=== PATIENT | male | born 1955 | race Caucasian/White ===

== ENCOUNTER 2018-01-09 18:01 | Inpatient (IN) | payer MEDICAID ==
[~2018-01-09] VITALS: Ht 182.9 cm; Wt 88.7 kg
[2018-01-09] MEDS ORDERED: HYDR25TA6 PO (18:19)
[2018-01-09] MEDS ORDERED: LISI5TAB7 PO (18:19)
[2018-01-09] MEDS ORDERED: ONDANSETRON ODT 4 MG PO ONE (18:30)
[2018-01-09] MEDS ORDERED: ONDANSETRON ODT 4 MG ONE (18:36)
[2018-01-09 18:49] LABS: BASOPHILS # (AUTO) 0.01 x10^3/uL (0-0.1); BASOPHILS % (AUTO) 0 % (0-1); EOSINOPHILS # (AUTO) 0.06 x10^3/uL (0-0.4); EOSINOPHILS % (AUTO) 1 % (1-7); LYMPHOCYTES % (AUTO) 6 % (22-44); MD NO; MEAN CORPUSCULAR HEMOGLOBIN 30.2 pg (27.5-34.5); MEAN CORPUSCULAR HGB CONC 34.2 g/dL (33.2-36.2); MEAN CORPUSCULAR VOLUME 88.2 fL (81-97); MEAN PLATELET VOLUME 6.9 fL (7.4-10.4); MONOCYTES # (AUTO) 0.61 x10^3/uL (0.2-0.8); MONOCYTES % (AUTO) 8 % (2-9); NEUTROPHILS # (AUTO) 6.88 x10^3/uL (1.8-6.8); NEUTROPHILS % (AUTO) 85 % (42-75); PLATELET COUNT 278 x10^3/uL (130-400); RED BLOOD COUNT 4.62 x10^6/uL (4.38-5.82); RED CELL DISTRIBUTION WIDTH 13.6 % (9.4-14.8)
[2018-01-09 18:55] LABS: ALANINE AMINOTRANSFERASE 157 U/L (12-78); ALBUMIN 3.7 g/dL (3.4-5.0); ANION GAP 12 mmol/L (5-15); CALCIUM 8.1 mg/dL (8.5-10.1); CHLORIDE 76 mmol/L (98-107); CREATININE 0.92 mg/dL (0.7-1.3)
[2018-01-09 18:57] LABS: ALKALINE PHOSPHATASE 92 U/L (45-117); BILIRUBIN,TOTAL 1.7 mg/dL (0.2-1.0)
[2018-01-09] MEDS ORDERED: PLEASE ENTER ALLERGIES MC SCH (19:30)
[2018-01-09] MEDS ORDERED: SODIUM CHLORIDE 0.9% 1,000ML IVBOLUS ONE (19:30)
[2018-01-09] MEDS ORDERED: SODIUM CHLORIDE 0.9% 1,000 ML IV SCH (19:53)
[2018-01-09] MEDS ORDERED: ONDANSETRON 2MG/ML, 2ML IVPush PRN (20:00)
[2018-01-09] MEDS ORDERED: METOCLOPRAMIDE 5 MG/ML, 2ML IVPush PRN (20:00)
[2018-01-09] MEDS ORDERED: LORazepam 2 MG/ML, 1ML IVPush PRN (20:00)
[2018-01-09] MEDS ORDERED: hydrALAzine 20 MG/ML, 1ML IVPush PRN (20:00)
[2018-01-09 20:07] LABS: MICROSCOPIC AUTO
[2018-01-09 20:10] LABS: CULTURE INDICATED? NO
[2018-01-09] MEDS ORDERED: NICOTINE 21 MG/24 HR PATCH.TD24 ONE (20:21)
[2018-01-09] MEDS ORDERED: ENOXAPARIN 40 MG/0.4 ML ONE (20:21)
[2018-01-09] MEDS: NICOTINE 21 MG/24 HR PATCH.TD24 TD SCH (20:38)
[2018-01-09] MEDS: ENOXAPARIN 40 MG/0.4 ML SQ SCH (20:39)
[2018-01-09 21:23] LABS: ANION GAP 10 mmol/L (5-15); CALCIUM 7.7 mg/dL (8.5-10.1); CHLORIDE 81 mmol/L (98-107); CREATININE 0.87 mg/dL (0.7-1.3)
[2018-01-09 22:40] VITALS: BP 131/92
[2018-01-10 01:24] LABS: ANION GAP 11 mmol/L (5-15); CALCIUM 8.1 mg/dL (8.5-10.1); CHLORIDE 86 mmol/L (98-107); CREATININE 0.81 mg/dL (0.7-1.3)
[2018-01-10] MEDS ORDERED: SODIUM CHLORIDE 0.45% 1,000 ML IV SCH (01:30)
[2018-01-10] MEDS: ALBUTEROL SULFATE 2.5 MG/3 ML NPPB PRN (01:43)
[2018-01-10 04:10] VITALS: BP 124/78
[2018-01-10 04:28] LABS: BASOPHILS # (AUTO) 0.05 x10^3/uL (0-0.1); BASOPHILS % (AUTO) 1 % (0-1); EOSINOPHILS # (AUTO) 0.06 x10^3/uL (0-0.4); EOSINOPHILS % (AUTO) 1 % (1-7); LYMPHOCYTES # (AUTO) 0.79 x10^3/uL (1-3.4); LYMPHOCYTES % (AUTO) 10 % (22-44); MD NO; MEAN CORPUSCULAR HEMOGLOBIN 29.5 pg (27.5-34.5); MEAN CORPUSCULAR HGB CONC 33.4 g/dL (33.2-36.2); MEAN CORPUSCULAR VOLUME 88.4 fL (81-97); MEAN PLATELET VOLUME 6.6 fL (7.4-10.4); MONOCYTES # (AUTO) 0.66 x10^3/uL (0.2-0.8); MONOCYTES % (AUTO) 8 % (2-9); NEUTROPHILS # (AUTO) 6.35 x10^3/uL (1.8-6.8); NEUTROPHILS % (AUTO) 80 % (42-75); PLATELET COUNT 265 x10^3/uL (130-400); RED BLOOD COUNT 4.58 x10^6/uL (4.38-5.82)
[2018-01-10 04:41] LABS: ALBUMIN 3.4 g/dL (3.4-5.0); ANION GAP 11 mmol/L (5-15); CHLORIDE 89 mmol/L (98-107)
[2018-01-10 04:46] LABS: ALANINE AMINOTRANSFERASE 134 U/L (12-78); ALKALINE PHOSPHATASE 84 U/L (45-117); BILIRUBIN,TOTAL 1.2 mg/dL (0.2-1.0); CREATININE 0.77 mg/dL (0.7-1.3); TOTAL PROTEIN 6.3 g/dL (6.4-8.2)
[2018-01-10 08:34] LABS: ANION GAP 10 mmol/L (5-15); CALCIUM 7.9 mg/dL (8.5-10.1); CHLORIDE 90 mmol/L (98-107); CREATININE 0.82 mg/dL (0.7-1.3)
[2018-01-10] MEDS: ACETAMINOPHEN 325 MG TABLET PO PRN ×2 (10:57→17:36)
[2018-01-10] MEDS: NICOTINE 21 MG/24 HR PATCH.TD24 TD SCH (10:58)
[2018-01-10] MEDS: SODIUM CHLORIDE 0.9% 1,000 ML IV SCH ×2 (15:18→22:00)
[2018-01-10] MEDS: ENOXAPARIN 40 MG/0.4 ML SQ SCH (20:25)
[2018-01-11] MEDS: ACETAMINOPHEN 325 MG TABLET PO PRN ×3 (00:17→19:05)
[2018-01-11] MEDS: GUAIFENESIN 100 MG/5 ML, 5ML UDC PO PRN ×3 (00:17→20:54)
[2018-01-11] MEDS ORDERED: SODIUM CHLORIDE 0.45% 1,000 ML IV SCH (01:30)
[2018-01-11 04:00] VITALS: BP 125/80
[2018-01-11 04:34] LABS: ALBUMIN 3.2 g/dL (3.4-5.0); ANION GAP 9 mmol/L (5-15); CALCIUM 7.7 mg/dL (8.5-10.1); CHLORIDE 99 mmol/L (98-107)
[2018-01-11 04:37] LABS: ALANINE AMINOTRANSFERASE 104 U/L (12-78); ALKALINE PHOSPHATASE 79 U/L (45-117); BILIRUBIN,TOTAL 0.8 mg/dL (0.2-1.0); CREATININE 0.74 mg/dL (0.7-1.3); TOTAL PROTEIN 6.1 g/dL (6.4-8.2)
[2018-01-11] MEDS: SODIUM CHLORIDE 0.9% 1,000 ML IV SCH (09:56)
[2018-01-11 14:00] VITALS: BP 129/74
[2018-01-11] MEDS ORDERED: GUAIFENESIN 100 MG/5 ML, 10ML UDC ONE ×2 (18:42→20:42)
[2018-01-11 19:12] VITALS: BP 150/93
[2018-01-11] MEDS: NICOTINE 21 MG/24 HR PATCH.TD24 TD SCH (19:29)
[2018-01-11] MEDS: ENOXAPARIN 40 MG/0.4 ML SQ SCH (19:29)
[2018-01-12] MEDS: SODIUM CHLORIDE 0.9% 1,000 ML IV SCH ×2 (00:11→10:25)
[2018-01-12 01:17] VITALS: BP 161/92
[2018-01-12 05:46] LABS: CHLORIDE 100 mmol/L (98-107)
[2018-01-12 05:50] LABS: ANION GAP 10 mmol/L (5-15); CALCIUM 8.1 mg/dL (8.5-10.1); CREATININE 0.76 mg/dL (0.7-1.3)
[2018-01-12 06:42] VITALS: BP 160/79
[2018-01-12 08:00] VITALS: BP 159/90
[2018-01-12] MEDS ORDERED: GUAIFENESIN 100 MG/5 ML, 10ML UDC ONE (08:40)
[2018-01-12] MEDS: ALBUTEROL SULFATE 2.5 MG/3 ML NPPB PRN (08:50)
[2018-01-12] MEDS: GUAIFENESIN 100 MG/5 ML, 5ML UDC PO PRN (08:50)
[2018-01-12 12:02] VITALS: BP 153/96
[2018-01-12] MEDS ORDERED: NICOTINE GUM 4 MG BC PRN (14:00)
== END 2018-01-12 16:16 | disposition home or self-care (01) | DRG 641 ==
LOC: ED 19:02 → SUATTDRO 19:42 → EDIP 19:53 → CCU 21:49 → 3NE 01-11 14:37
PROVIDERS: ADMIT Hospitalist; ATTEND Hospitalist
DX: E87.1 Hypo-osmolality and hyponatremia (principal); K70.10 Alcoholic hepatitis without ascites; F10.20 Alcohol dependence, uncomplicated; F17.210 Nicotine dependence, cigarettes, uncomplicated; I10 Essential (primary) hypertension; J44.9 Chronic obstructive pulmonary disease, unspecified; Z59.0 Homelessness
CPT/HCPCS: 36415; 71046; 76700; 80048; 80053; 81001; 83690; 83735; 84100; 84295; 85025; 87081; 94640; 96360; J1650; J7613; J2765; J7030

== ENCOUNTER 2018-01-16 20:18 | Emergency (ER) | payer MEDICAID ==
[~2018-01-16] VITALS: Ht 182.9 cm; Wt 84.6 kg
[~2018-01-16 20:18] MED LIST: HYDR25TA6 PO; LISI5TAB7 PO
[2018-01-16] MEDS ORDERED: ALBUTEROL/IPRATROPIUM 2.5MG/0.5MG, 3 ML NPPB ONE (21:00)
[2018-01-16 21:13] LABS: BASOPHILS # (AUTO) 0.07 x10^3/uL (0-0.1); BASOPHILS % (AUTO) 1 % (0-1); EOSINOPHILS # (AUTO) 0.07 x10^3/uL (0-0.4); EOSINOPHILS % (AUTO) 1 % (1-7); LYMPHOCYTES % (AUTO) 15 % (22-44); MD NO; MEAN CORPUSCULAR HEMOGLOBIN 29.4 pg (27.5-34.5); MEAN CORPUSCULAR HGB CONC 33.5 g/dL (33.2-36.2); MEAN CORPUSCULAR VOLUME 87.7 fL (81-97); MEAN PLATELET VOLUME 6.2 fL (7.4-10.4); MONOCYTES # (AUTO) 0.93 x10^3/uL (0.2-0.8); MONOCYTES % (AUTO) 13 % (2-9); NEUTROPHILS # (AUTO) 5.04 x10^3/uL (1.8-6.8); NEUTROPHILS % (AUTO) 70 % (42-75); PLATELET COUNT 362 x10^3/uL (130-400); RED BLOOD COUNT 4.27 x10^6/uL (4.38-5.82); RED CELL DISTRIBUTION WIDTH 14.1 % (9.4-14.8)
[2018-01-16] MEDS ORDERED: ALBUTEROL/IPRATROPIUM 2.5MG/0.5MG, 3 ML ONE (21:14)
[2018-01-16 21:21] LABS: ANION GAP 12 mmol/L (5-15); CALCIUM 8.1 mg/dL (8.5-10.1); CHLORIDE 90 mmol/L (98-107); CREATININE 0.78 mg/dL (0.7-1.3)
[2018-01-16 21:25] LABS: TROPONIN I < 0.015 ng/mL (0.000-0.045)
[2018-01-16 21:52] VITALS: BP 158/88
[2018-01-16] MEDS ORDERED: DEXAMETHASONE 4 MG TABLET ONE (22:10)
[2018-01-16] MEDS ORDERED: DEXAMETHASONE 4 MG TABLET PO ONE (22:30)
== END 2018-01-16 22:40 | disposition home or self-care (01) ==
LOC: ED 21:19
DX: J44.1 Chronic obstructive pulmonary disease with (acute) exacerbation (principal); F10.20 Alcohol dependence, uncomplicated; I10 Essential (primary) hypertension; E87.1 Hypo-osmolality and hyponatremia
CPT/HCPCS: 36415; 71046; 80048; 82040; 83880; 84484; 85025; 93005; 94640; 99285; J7620

== ENCOUNTER 2018-02-14 23:27 | Emergency (ER) | payer MEDICAID ==
[~2018-02-14] VITALS: Ht 182.9 cm; Wt 78.5 kg
[2018-02-14 23:34] VITALS: BP 154/99
== END 2018-02-15 01:07 | disposition home or self-care (01) ==
LOC: ED 02-15 00:23
DX: S39.012A Strain of muscle, fascia and tendon of lower back, initial encounter (principal); I10 Essential (primary) hypertension; J44.9 Chronic obstructive pulmonary disease, unspecified; K21.9 Gastro-esophageal reflux disease without esophagitis; F10.20 Alcohol dependence, uncomplicated; F17.210 Nicotine dependence, cigarettes, uncomplicated; Z76.0 Encounter for issue of repeat prescription; Y04.0XXA Assault by unarmed brawl or fight, initial encounter; Y93.89 Activity, other specified; Y92.89 Other specified places as the place of occurrence of the external cause; Y99.8 Other external cause status
CPT/HCPCS: 72220; 99284

== ENCOUNTER 2018-10-19 17:30 | Emergency (ER) | payer MEDICAID ==
[~2018-10-19] VITALS: Ht 182.9 cm; Wt 69.8 kg
[2018-10-19 17:46] VITALS: BP 160/87
[2018-10-19] MEDS ORDERED: SODIUM CHLORIDE FLUSH 10ML SYR IVF ONE (18:00)
[2018-10-19 18:30] LABS: BASOPHILS # (AUTO) 0.03 x10^3/uL (0-0.1); BASOPHILS % (AUTO) 1 % (0-1); EOSINOPHILS # (AUTO) 0.08 x10^3/uL (0-0.4); EOSINOPHILS % (AUTO) 2 % (1-7); LYMPHOCYTES # (AUTO) 1.27 x10^3/uL (1-3.4); LYMPHOCYTES % (AUTO) 31 % (22-44); MD NO; MEAN CORPUSCULAR HEMOGLOBIN 30.3 pg (27.5-34.5); MEAN CORPUSCULAR HGB CONC 34.3 g/dL (33.2-36.2); MEAN CORPUSCULAR VOLUME 88.4 fL (81-97); MEAN PLATELET VOLUME 6.6 fL (7.4-10.4); MONOCYTES # (AUTO) 0.49 x10^3/uL (0.2-0.8); MONOCYTES % (AUTO) 12 % (2-9); NEUTROPHILS # (AUTO) 2.21 x10^3/uL (1.8-6.8); NEUTROPHILS % (AUTO) 54 % (42-75); PLATELET COUNT 367 x10^3/uL (130-400); RED BLOOD COUNT 4.51 x10^6/uL (4.38-5.82); RED CELL DISTRIBUTION WIDTH 14.9 % (9.4-14.8)
--- NOTE | 2018-10-19 18:39 | NUR ---
PARTS COUNTER CLERK: TO ROOM FROM BENITO MATHEW
[2018-10-19 18:40] LABS: ALANINE AMINOTRANSFERASE 43 U/L (12-78); ALBUMIN 3.6 g/dL (3.4-5.0); ANION GAP 7 mmol/L (5-15); CALCIUM 8.5 mg/dL (8.5-10.1); CHLORIDE 94 mmol/L (98-107)
[2018-10-19 18:43] LABS: ALKALINE PHOSPHATASE 130 U/L (45-117); BILIRUBIN,TOTAL 0.7 mg/dL (0.2-1.0); TOTAL PROTEIN 7.1 g/dL (6.4-8.2); TROPONIN I < 0.015 ng/mL (0.000-0.045)
--- NOTE | 2018-10-19 18:47 | NUR ---
report given to Janet
--- NOTE | 2018-10-19 18:48 | NUR ---
REPORT RECEIVED FROM CLARY GUZMAN
--- NOTE | 2018-10-19 18:51 | NUR ---
pt's chart up for recheck
== END 2018-10-19 20:12 | disposition home or self-care (01) ==
LOC: ED 19:57
DX: R05 Cough (principal); E87.1 Hypo-osmolality and hyponatremia; J44.1 Chronic obstructive pulmonary disease with (acute) exacerbation; K21.9 Gastro-esophageal reflux disease without esophagitis; I10 Essential (primary) hypertension
CPT/HCPCS: 36415; 71045; 80053; 83880; 84484; 85025; 93005; 99284

== ENCOUNTER 2018-11-01 12:40 | Emergency (ER) | payer MEDICAID ==
[~2018-11-01] VITALS: Ht 185.4 cm; Wt 71.0 kg
[2018-11-01] MEDS ORDERED: ONDANSETRON 2MG/ML, 2ML ONE (12:56)
[2018-11-01] MEDS ORDERED: MORPHINE SULFATE 4 MG/ML, 1ML ONE (12:56)
[2018-11-01] MEDS ORDERED: PLEASE ENTER HEIGHT AND WEIGHT MC SCH (13:00)
[2018-11-01] MEDS ORDERED: SODIUM CHLORIDE FLUSH 10ML SYR IVF ONE (13:00)
[2018-11-01] MEDS ORDERED: ONDANSETRON 2MG/ML, 2ML IVPush ONE (13:00)
[2018-11-01] MEDS ORDERED: MORPHINE SULFATE 4 MG/ML, 1ML IVPush PRN (13:00)
[2018-11-01 13:05] LABS: BASOPHILS # (AUTO) 0.04 x10^3/uL (0-0.1); BASOPHILS % (AUTO) 1 % (0-1); EOSINOPHILS # (AUTO) 0.02 x10^3/uL (0-0.4); EOSINOPHILS % (AUTO) 0 % (1-7); LYMPHOCYTES # (AUTO) 0.54 x10^3/uL (1-3.4); LYMPHOCYTES % (AUTO) 6 % (22-44); MD NO; MEAN CORPUSCULAR HEMOGLOBIN 30.3 pg (27.5-34.5); MEAN CORPUSCULAR HGB CONC 34.3 g/dL (33.2-36.2); MEAN CORPUSCULAR VOLUME 88.5 fL (81-97); MEAN PLATELET VOLUME 6.7 fL (7.4-10.4); MONOCYTES # (AUTO) 0.56 x10^3/uL (0.2-0.8); MONOCYTES % (AUTO) 6 % (2-9); NEUTROPHILS # (AUTO) 7.93 x10^3/uL (1.8-6.8); NEUTROPHILS % (AUTO) 87 % (42-75); PLATELET COUNT 301 x10^3/uL (130-400); RED BLOOD COUNT 4.33 x10^6/uL (4.38-5.82); RED CELL DISTRIBUTION WIDTH 14.8 % (9.4-14.8)
--- NOTE | 2018-11-01 13:05 | NUR ---
PATIENT MEDICATED FOR PAIN.
[2018-11-01 13:18] LABS: ALBUMIN 3.3 g/dL (3.4-5.0); ANION GAP 8 mmol/L (5-15); CALCIUM 8.8 mg/dL (8.5-10.1); CHLORIDE 95 mmol/L (98-107)
[2018-11-01 13:21] LABS: ALANINE AMINOTRANSFERASE 29 U/L (12-78); ALKALINE PHOSPHATASE 117 U/L (45-117); BILIRUBIN,TOTAL 0.7 mg/dL (0.2-1.0); CREATININE 0.81 mg/dL (0.7-1.3); TOTAL PROTEIN 6.6 g/dL (6.4-8.2)
[2018-11-01 14:49] LABS: MICROSCOPIC NOT IND
[2018-11-01 14:56] LABS: CULTURE INDICATED? NO
[2018-11-01 15:34] VITALS: BP 135/80
--- NOTE | 2018-11-01 15:34 | NUR ---
Patient resting in gurney with eyes closed, respirations appear even and without labor, patient appears to be asleep.
--- NOTE | 2018-11-01 15:41 | NUR ---
Patient given sprite for oral fluid challenge as requested by Dr. Marquez
--- NOTE | 2018-11-01 15:53 | NUR ---
no vomiting after sprite
--- NOTE | 2018-11-01 16:36 | NUR ---
Patient awoken to discuss discharge instructions, verbalizes understanding, questions answered. Patient ambualtes with steady gait to discharge desk in no acute distress.
== END 2018-11-01 16:38 | disposition home or self-care (01) ==
LOC: ED 15:12
DX: R10.32 Left lower quadrant pain (principal); R30.0 Dysuria; I10 Essential (primary) hypertension; K21.9 Gastro-esophageal reflux disease without esophagitis; J44.9 Chronic obstructive pulmonary disease, unspecified
CPT/HCPCS: 36415; 80053; 81003; 85025; 96374; 96375; 99283; J2405